=== PATIENT | male | born 1995 | race Caucasian/White ===

== ENCOUNTER 2019-08-09 21:14 | Day surgery (SDC) | payer OTHER ==
[2019-08-09] MEDS ORDERED: Sodium Chloride 0.9% 10 ML Syringe FLUSH PRN (21:18)
[2019-08-09] MEDS ORDERED: Sodium Chloride 0.9% 2.5 ML Syringe FLUSH PRN (21:18)
[2019-08-09 22:12] LABS: BLOOD UREA NITROGEN,BUN 15 mg/dL (7.0-18.0); CARBON DIOXIDE,CO2 29.1 mmol/L (21.0-32.0); CHLORIDE,CL 101 mmol/L (98-107); GLUCOSE RANDOM 130 mg/dL (74-106); POTASSIUM,K 4.2 mmol/L (3.5-5.1); SODIUM,NA 139 mmol/L (136-148)
--- NOTE | 2019-08-10 00:01 | EDM.PDOC ---
ED HPI GENERAL MEDICAL PROBLEM - General Chief Complaint: Abdominal Pain Stated Complaint: ABDOMINAL PAIN Time Seen by Provider: 08/09/19 23:30 Source of Information: Reports: Patient - History of Present Illness INITIAL COMMENTS - FREE TEXT/NARRATIVE: The patient is a healthy 23-year-old male who presents to the ER for right lower quadrant abdominal pain. He states that this started last night and has been persistent and slowly getting worse. He states that the pain is always there and the only thing that seems to make it better or worse is movement makes it worse and it seems to be a little better if he sits still but the pain is still there. No fevers or chills, no nausea or vomiting, no testicular pain , no dysuria urinary frequency, no other acute complaints. RLQ Pain Score (Numeric/FACES): 7 - Related Data Allergies Allergy/AdvReac Type Severity Reaction Status Date / Time Cephalosporins Allergy Hives Verified 08/09/19 21:25 Penicillins Allergy Hives Verified 08/09/19 21:25 Sulfa (Sulfonamide Allergy Hives Verified 08/09/19 21:25 Antibiotics) Home Meds: Home Meds Methylphenidate HCl [Concerta] 36 mg PO DAILY 08/09/19 [History] Sertraline [Zoloft] 200 mg PO DAILY 08/09/19 [History] buPROPion [Wellbutrin] 75 mg PO DAILY 08/09/19 [History] Past Medical History HEENT History: Reports: None Cardiovascular History: Reports: None Respiratory History: Reports: None Gastrointestinal History: Reports: None Genitourinary History: Reports: None Musculoskeletal History: Reports: None Psychiatric History: Reports: ADHD, Anxiety, Depression Endocrine/Metabolic History: Reports: None Hematologic History: Reports: None Immunologic History: Reports: None Oncologic (Cancer) History: Reports: None Dermatologic History: Reports: None - Infectious Disease History Infectious Disease History: Reports: Chicken Pox - Past Surgical History Male Surgical History: Reports: None Social & Family History - Family History Family Medical History: Noncontributory - Tobacco Use Smoking Status *Q: Never Smoker - Recreational Drug Use Recreational Drug Use: No ED ROS GENERAL - Review of Systems Review Of Systems: See Below (Positive for abdominal pain, negative for fevers, negative for chills, negative for dysuria, negative for nausea or vomiting or diarrhea, all other Positives and pertinent negatives as per HPI. All other pertinent systems were reviewed and are negative) ED EXAM, GI/ABD - Physical Exam Exam: See Below Text/Narrative:: Constitutional: No acute distress, Non-toxic appearance HEENT.: Normocephalic, Atraumatic, PERRL, EOMI, External ears are atraumatic, nares are patent without epistaxis Neck: Normal range of motion, Trachea Midline, No stridor Respiratory.: No respiratory distress, No tachypnea, Lungs Clear to Auscultation bilaterally without wheezes, rales, or rhonchi Cardiovascular.: Regular rate and Rhythm without murmurs, rubs, or gallops, good peripheral perfusion GI: Abdomen is morbidly obese, not distended, there is very reproducible right lower quadrant and suprapubic tenderness, there appears to be some guarding and rebound Genital Urinary: Deferred Musculoskeletal: Good range of motion. All 4 extremities present and atraumatic , no edema Back: Full Range of Motion Skin: Warm, Dry, Color is ethnicity appropriate, No acute rash. Lymphatic: No lymphadenopathy noted Neurological: Alert, Awake and oriented x 3, No focal deficits noted appreciate , GCS 15 Psych: Affect, Judgement, mood normal Course - Vital Signs Text/Narrative:: Differential diagnosis is extensive but is most concerning for an appendicitis. Lab work was initiated and a CT scan of the abdomen and pelvis with IV contrast was initiated and the patient has a positive dilated appendix with localized periappendiceal inflammatory changes consistent with appendicitis. No other concerning findings were found on the CT scan. The patient will be started on clindamycin 300 mg IV and he will be admitted for surgery for further treatment and final disposition as appropriate. Last Recorded V/S: Last Vital Signs Temp 36.1 C 08/09/19 21:28 Pulse 109 H 08/09/19 23:32 Resp 18 08/09/19 21:28 BP 126/76 08/10/19 00:08 Pulse Ox 96 08/09/19 23:32 - Orders/Labs/Meds Orders: Active Orders 24 hr Category Date Time Status Clindamycin Phosphate [Cleocin] 300 mg Med 08/10/19 00:59 Ordered Sodium Chloride 0.9% [Normal Saline] 50 ml IV ONETIME Sodium Chloride 0.9% [Saline Flush] Med 08/09/19 21:18 Active 10 ml FLUSH ASDIRECTED PRN Sodium Chloride 0.9% [Saline Flush] Med 08/09/19 21:18 Active 2.5 ml FLUSH ASDIRECTED PRN Saline Lock Insert [OM.PC] Stat Oth 08/09/19 21:18 Ordered Medication Orders Sodium Chloride (Saline Flush) 10 ml FLUSH ASDIRECTED PRN PRN Reason: Keep Vein Open Sodium Chloride (Saline Flush) 2.5 ml FLUSH ASDIRECTED PRN PRN Reason: Keep Vein Open Labs: Laboratory Tests 08/09/19 08/09/19 08/09/19 Range/Units 21:29 21:38 21:38 WBC 11.78 H (4.0-11.0) K/uL RBC 5.69 (4.50-5.90) M/uL Hgb 16.5 (13.0-17.0) g/dL Hct 48.7 (38.0-50.0) % MCV 85.6 (80.0-98.0) fL MCH 29.0 (27.0-32.0) pg MCHC 33.9 (31.0-37.0) g/dL RDW Std Deviation 41.9 (28.0-62.0) fl RDW Coeff of Zev 14 (11.0-15.0) % Plt Count 350 (150-400) K/uL MPV 9.10 (7.40-12.00) fL Neut % (Auto) 68.4 (48.0-80.0) % Lymph % (Auto) 20.6 (16.0-40.0) % [place] % (Auto) 9.3 (0.0-15.0) % Eos % (Auto) 1.4 (0.0-7.0) % Baso % (Auto) 0.3 (0.0-1.5) % Neut # (Auto) 8.1 H (1.4-5.7) K/uL Lymph # (Auto) 2.4 (0.6-2.4) K/uL [place] # (Auto) 1.1 H (0.0-0.8) K/uL Eos # (Auto) 0.2 (0.0-0.7) K/uL Baso # (Auto) 0.0 (0.0-0.1) K/uL Nucleated RBC % 0.0 /100WBC Nucleated RBCs # 0 K/uL Sodium 139 (136-148) mmol/L Potassium 4.2 (3.5-5.1) mmol/L Chloride 101 (98-107) mmol/L Carbon Dioxide 29.1 (21.0-32.0) mmol/L BUN 15 (7.0-18.0) mg/dL Creatinine 1.0 (0.8-1.3) mg/dL Est Cr Clr Drug Dosing 129.84 mL/min Estimated GFR (MDRD) > 60.0 ml/min Glucose 130 H (74-106) mg/dL Calcium 9.0 (8.5-10.1) mg/dL Total Bilirubin 0.6 (0.2-1.0) mg/dL AST 22 (15-37) IU/L ALT 43 (14-63) IU/L Alkaline Phosphatase 116 (46-116) U/L Total Protein 8.0 (6.4-8.2) g/dL Albumin 3.4 (3.4-5.0) g/dL Globulin 4.6 H (2.6-4.0) g/dL Albumin/Globulin Ratio 0.7 L (0.9-1.6) Urine Color YELLOW Urine Appearance CLEAR Urine pH 6.0 (5.0-8.0) Ur Specific [place] 1.025 (1.001-1.035) Urine Protein NEGATIVE (NEGATIVE) mg/dL Urine Glucose (UA) NEGATIVE (NEGATIVE) mg/dL Urine Ketones NEGATIVE (NEGATIVE) mg/dL Urine Occult Blood NEGATIVE (NEGATIVE) Urine Nitrite NEGATIVE (NEGATIVE) Urine Bilirubin NEGATIVE (NEGATIVE) Urine Urobilinogen 0.2 (<2.0) EU/dL Ur Leukocyte Esterase NEGATIVE (NEGATIVE) Meds: Medications Generic Name Dose Route Start Last Admin Trade Name Freq PRN Reason Stop Dose Admin Sodium Chloride 10 ml 08/09/19 21:18 Saline Flush FLUSH ASDIRECTED PRN Keep Vein Open Sodium Chloride 2.5 ml 08/09/19 21:18 Saline Flush FLUSH ASDIRECTED PRN Keep Vein Open Discontinued Medications Generic Name Dose Route Start Last Admin Trade Name Freq PRN Reason Stop Dose Admin Iopamidol 100 ml 08/10/19 00:03 08/10/19 00:14 Isovue-370 (76%) IVPUSH 08/10/19 00:04 100 ml ONETIME STA Administration Departure - Departure Time of Disposition: 01:01 Disposition: Admitted As Inpatient 66 Condition: Good Clinical Impression: Appendicitis - Discharge Information Referrals: PCP,Not In Area [Primary Care Provider] - Forms: ED Department Discharge Sepsis Event Note - Evaluation Sepsis Screening Result: No Definite Risk - Focused Exam Vital Signs: Vital Signs Temp Pulse Resp BP Pulse Ox 08/10/19 00:08 126/76 08/09/19 23:32 109 H 96 08/09/19 21:28 36.1 C 100 18 133/73 96 Date Exam was Performed: 08/10/19 Time Exam was Performed: 01:00 - My Orders Last 24 Hours: My Active Orders 08/10/19 00:59 Clindamycin Phosphate [Cleocin] 300 mg Sodium Chloride 0.9% [Normal Saline] 50 ml IV ONETIME - Assessment/Plan Last 24 Hours: My Active Orders 08/10/19 00:59 Clindamycin Phosphate [Cleocin] 300 mg Sodium Chloride 0.9% [Normal Saline] 50 ml IV ONETIME
[2019-08-10] MEDS ORDERED: Iopamidol 755 Mg/ML 100 ML Bottle IVPUSH STA (00:03)
--- NOTE | 2019-08-10 00:48 | CT ---
INDICATION: Right-sided abdominal pain TECHNIQUE: Axial images were obtained from the diaphragm to the pubic symphysis. Reformats were obtained in the coronal and sagittal plane. IV Contrast: 100 cc Isovue 370 Oral Contrast: None COMPARISON: None. FINDINGS: Lower chest: Basilar discoid atelectasis. Liver: Unremarkable. Normal in size and attenuation. No masses. Gallbladder and bile ducts: Contracted gallbladder without gross abnormality. Spleen: Unremarkable. Normal in size without mass. Pancreas: Unremarkable. No mass or inflammation. Adrenal glands: Unremarkable. No nodules. Kidneys: Unremarkable. No masses, stones, or hydronephrosis. Vasculature: Unremarkable. GI tract: Stomach is unremarkable. There are no dilated loops of large or small intestine. Dilation of the appendix measuring up to 10 millimeters with periappendiceal fat stranding. Small fecalith noted. No evidence of abscess. Presumed reactive right lower quadrant mesenteric lymph nodes. Pelvis: Unremarkable. Bones: Unremarkable for age. IMPRESSION: Dilated appendix with periappendiceal inflammation consistent with acute appendicitis. No evidence of abscess. Please note that all CT scans at this facility use dose modulation, iterative reconstruction, and/or weight-based dosing when appropriate to reduce radiation dose to as low as reasonably achievable. Dictated by Zechariah Meehan MD @ Aug 10 2019 12:43AM Signed by Dr. Zechariah Meehan @ Aug 10 2019 12:47AM
[2019-08-10] MEDS ORDERED: Clindamycin Phosphate in D5W 600 MG in Premix Bag 1 BAG IV ONE ×2 (01:34)
--- NOTE | 2019-08-10 01:41 | PCM.PREANE ---
Preanesthetic Assessment - Anesthesia/Transfusion/Family Hx Anesthesia History: Prior Anesthesia Without Reaction Family History of Anesthesia Reaction: No Transfusion History: No Prior Transfusion(s) Intubation History: Intubation other than for Surgery in past - Review of Systems General: No Symptoms Pulmonary: No Symptoms Cardiovascular: No Symptoms Gastrointestinal: Other (Pain) Neurological: No Symptoms Other: Reports: None - Physical Assessment NPO Status Date: 08/09/19 NPO Status Time: 18:30 Vital Signs: Last Vital Signs Temp 36.2 C 08/10/19 01:02 Pulse 89 08/10/19 01:02 Resp 18 08/10/19 01:02 BP 136/85 08/10/19 01:02 Pulse Ox 96 08/10/19 01:02 Height: 1.85 m Weight: 145.15 kg ASA Class: 2E Mental Status: Alert & Oriented x3 Airway Class: Mallampati = 1 Dentition: Reports: Normal Dentition Thyro-Mental Finger Breadths: 3 Mouth Opening Finger Breadths: 3 ROM/Head Extension: Full Lungs: Clear to Auscultation Cardiovascular: Regular Rate - Lab Values: Laboratory Last Values WBC 11.78 K/uL (4.0-11.0) H 08/09/19 21:38 RBC 5.69 M/uL (4.50-5.90) 08/09/19 21:38 Hgb 16.5 g/dL (13.0-17.0) 08/09/19 21:38 Hct 48.7 % (38.0-50.0) 08/09/19 21:38 MCV 85.6 fL (80.0-98.0) 08/09/19 21:38 MCH 29.0 pg (27.0-32.0) 08/09/19 21:38 MCHC 33.9 g/dL (31.0-37.0) 08/09/19 21:38 RDW Std Deviation 41.9 fl (28.0-62.0) 08/09/19 21:38 RDW Coeff of Zev 14 % (11.0-15.0) 08/09/19 21:38 Plt Count 350 K/uL (150-400) 08/09/19 21:38 MPV 9.10 fL (7.40-12.00) 08/09/19 21:38 Neut % (Auto) 68.4 % (48.0-80.0) 08/09/19 21:38 Lymph % (Auto) 20.6 % (16.0-40.0) 08/09/19 21:38 [place] % (Auto) 9.3 % (0.0-15.0) 08/09/19 21:38 Eos % (Auto) 1.4 % (0.0-7.0) 08/09/19 21:38 Baso % (Auto) 0.3 % (0.0-1.5) 08/09/19 21:38 Neut # (Auto) 8.1 K/uL (1.4-5.7) H 08/09/19 21:38 Lymph # (Auto) 2.4 K/uL (0.6-2.4) 08/09/19 21:38 [place] # (Auto) 1.1 K/uL (0.0-0.8) H 08/09/19 21:38 Eos # (Auto) 0.2 K/uL (0.0-0.7) 08/09/19 21:38 Baso # (Auto) 0.0 K/uL (0.0-0.1) 08/09/19 21:38 Nucleated RBC % 0.0 /100WBC 08/09/19 21:38 Nucleated RBCs # 0 K/uL 08/09/19 21:38 Sodium 139 mmol/L (136-148) 08/09/19 21:38 Potassium 4.2 mmol/L (3.5-5.1) 08/09/19 21:38 Chloride 101 mmol/L (98-107) 08/09/19 21:38 Carbon Dioxide 29.1 mmol/L (21.0-32.0) 08/09/19 21:38 BUN 15 mg/dL (7.0-18.0) 08/09/19 21:38 Creatinine 1.0 mg/dL (0.8-1.3) 08/09/19 21:38 Est Cr Clr Drug Dosing 129.84 mL/min 08/09/19 21:38 Estimated GFR (MDRD) > 60.0 ml/min 08/09/19 21:38 Glucose 130 mg/dL (74-106) H 08/09/19 21:38 Calcium 9.0 mg/dL (8.5-10.1) 08/09/19 21:38 Total Bilirubin 0.6 mg/dL (0.2-1.0) 08/09/19 21:38 AST 22 IU/L (15-37) 08/09/19 21:38 ALT 43 IU/L (14-63) 08/09/19 21:38 Alkaline Phosphatase 116 U/L (46-116) 08/09/19 21:38 Total Protein 8.0 g/dL (6.4-8.2) 08/09/19 21:38 Albumin 3.4 g/dL (3.4-5.0) 08/09/19 21:38 Globulin 4.6 g/dL (2.6-4.0) H 08/09/19 21:38 Albumin/Globulin Ratio 0.7 (0.9-1.6) L 08/09/19 21:38 Urine Color YELLOW 08/09/19 21:29 Urine Appearance CLEAR 08/09/19 21:29 Urine pH 6.0 (5.0-8.0) 08/09/19 21:29 Ur Specific [place] 1.025 (1.001-1.035) 08/09/19 21:29 Urine Protein NEGATIVE mg/dL (NEGATIVE) 08/09/19 21:29 Urine Glucose (UA) NEGATIVE mg/dL (NEGATIVE) 08/09/19 21:29 Urine Ketones NEGATIVE mg/dL (NEGATIVE) 08/09/19 21:29 Urine Occult Blood NEGATIVE (NEGATIVE) 08/09/19 21:29 Urine Nitrite NEGATIVE (NEGATIVE) 08/09/19 21:29 Urine Bilirubin NEGATIVE (NEGATIVE) 08/09/19 21:29 Urine Urobilinogen 0.2 EU/dL (<2.0) 08/09/19 21:29 Ur Leukocyte Esterase NEGATIVE (NEGATIVE) 08/09/19 21:29 - Allergies Allergies/Adverse Reactions: Allergies Allergy/AdvReac Type Severity Reaction Status Date / Time Cephalosporins Allergy Hives Verified 08/09/19 21:25 Penicillins Allergy Hives Verified 08/09/19 21:25 Sulfa (Sulfonamide Allergy Hives Verified 08/09/19 21:25 Antibiotics) - Blood Blood Available: No Product(s) Available: None - Anesthesia Plan Free Text/Narrative:: GAET Pre-Op Medication Ordered: None - Acknowledgements Anesthesia Type Planned: General Anesthesia Pt an Appropriate Candidate for the Planned Anesthesia: Yes Alternatives and Risks of Anesthesia Discussed w Pt/Guardian: Yes Pt/Guardian Understands and Agrees with Anesthesia Plan: Yes Additional Comments: Discussed. ? answered. Permit signed. PreAnesthesia Questionnaire HEENT History: Reports: None Cardiovascular History: Reports: None Respiratory History: Reports: None Gastrointestinal History: Reports: None Genitourinary History: Reports: None Musculoskeletal History: Reports: None Psychiatric History: Reports: ADHD, Anxiety, Depression Endocrine/Metabolic History: Reports: None Hematologic History: Reports: None Immunologic History: Reports: None Oncologic (Cancer) History: Reports: None Dermatologic History: Reports: None - Infectious Disease History Infectious Disease History: Reports: Chicken Pox - Past Surgical History Male Surgical History: Reports: None - SUBSTANCE USE Smoking Status *Q: Never Smoker Recreational Drug Use History: No - HOME MEDS Home Medications: Home Meds Methylphenidate HCl [Concerta] 36 mg PO DAILY 08/09/19 [History] Sertraline [Zoloft] 200 mg PO DAILY 08/09/19 [History] buPROPion [Wellbutrin] 75 mg PO DAILY 08/09/19 [History] - CURRENT (IN HOUSE) MEDS Current Meds: Current Medications Clindamycin Phosphate 600 mg/ (Premix) 50 mls @ 100 mls/hr IV ONETIME ONE Stop: 08/10/19 02:03 Lactated Ringer's (Ringers, Lactated) 1,000 mls @ 150 mls/hr IV ASDIRECTED LUIS Sodium Chloride (Saline Flush) 10 ml FLUSH ASDIRECTED PRN PRN Reason: Keep Vein Open Sodium Chloride (Saline Flush) 2.5 ml FLUSH ASDIRECTED PRN PRN Reason: Keep Vein Open Discontinued Medications Clindamycin Phosphate 300 mg/ (Sodium Chloride) 52 mls @ 100 mls/hr IV ONETIME ONE Stop: 08/10/19 01:30 Iopamidol (Isovue-370 (76%)) 100 ml IVPUSH ONETIME STA Stop: 08/10/19 00:04 Last Admin: 08/10/19 00:14 Dose: 100 ml
[2019-08-10] MEDS ORDERED: Lactated Ringers 1,000 ML IV SCH ×2 (01:45→05:15)
[2019-08-10] MEDS ORDERED: Levofloxacin/Dextrose 5%-Water 750 MG in Premix Bag 1 BAG IV ONE (01:47)
[2019-08-10] MEDS ORDERED: fentaNYL 100 MCG/2 ML SDV ONE ×2 (01:51→03:56)
[2019-08-10] MEDS ORDERED: Midazolam 1 MG/ML 2 ML SDV ONE (01:51)
[2019-08-10] MEDS ORDERED: Ondansetron 4 MG/2 ML SDV ONE (01:51)
[2019-08-10] MEDS ORDERED: Propofol 200 MG/20 ML SDV ONE (01:51)
[2019-08-10] MEDS ORDERED: Glycopyrrolate 0.2 MG/ML SDV ONE (01:52)
[2019-08-10] MEDS ORDERED: Morphine 10 MG/ML Syringe ONE (01:52)
[2019-08-10] MEDS ORDERED: Rocuronium 100 MG/10 ML Syringe ONE (01:52)
[2019-08-10] MEDS ORDERED: Ketorolac 30 MG/ML SDV ONE (01:52)
[2019-08-10] MEDS ORDERED: Sugammadex Sodium 200 MG/2 ML VIAL ONE (01:53)
--- NOTE | 2019-08-10 01:57 | PCM.SN ---
- Free Text/Narrative Note: pt seen, chart reviewed; acute appendicitis w abd pain X 24 hrs, proceed w appendectomy, lap vs open, rb dw pt re bleeding/infection/damage to nearby organs; pt concur and proceed; iv abx levaquine; LR at 150; [id number]
[2019-08-10] MEDS ORDERED: Bupivacaine 0.25%/EPINEPHrine 1:200,000 10 ML SDV ONE ×2 (02:09)
[2019-08-10] MEDS ORDERED: Morphine 4 MG/ML Syringe IVPUSH ONE (03:17)
[2019-08-10] MEDS ORDERED: Lidocaine 2% 5 ML SDV ONE (04:53)
--- NOTE | 2019-08-10 04:59 | PCM.OPNOTE ---
- General Post-Op/Procedure Note Date of Surgery/Procedure: 08/10/19 Operative Procedure(s): lap appendectomy Findings: appendicitis suppurativa, gross perf not observed; surgicell and flat jud drain placed. [id number] Pre Op Diagnosis: acute appendicitis Post-Op Diagnosis: Same Anesthesia Technique: General ET Tube Primary Surgeon: Raul Collazo Pathology: sent Complications: None Condition: Stable
[2019-08-10] MEDS ORDERED: Acetaminophen/oxyCODONE 325-5 MG Tab PO PRN (05:03)
[2019-08-10] MEDS ORDERED: Ondansetron 4 MG/2 ML SDV IVPUSH PRN (05:04)
[2019-08-10] MEDS ORDERED: Morphine 4 MG/ML Syringe IVPUSH PRN (05:10)
[2019-08-10] MEDS ORDERED: Promethazine 25 MG/ML SDV ONE (05:54)
[2019-08-10] MEDS ORDERED: Promethazine 25 MG/ML SDV IM ONE (05:55)
--- NOTE | 2019-08-10 06:24 | PCM.POSTAN ---
POST ANESTHESIA ASSESSMENT - MENTAL STATUS Mental Status: Alert Free Text/Narrative:: Somewhat sleepy from phenergan. - VITAL SIGNS Vital Signs: Last Vital Signs Temp 36.7 C 08/10/19 05:05 Pulse 75 08/10/19 06:21 Resp 15 08/10/19 06:21 BP 122/55 L 08/10/19 06:21 Pulse Ox 93 L 08/10/19 06:21 - RESPIRATORY Respiratory Status: Respiratory Rate WNL - CARDIOVASCULAR CV Status: Pulse Rate WNL - GASTROINTESTINAL GI Status: [place] Free Text/Narrative:: Improving. - PAIN Pain Score: 4 (Sore.) - POST OP HYDRATION Hydration Status: Adequate & Stable - OBSERVATIONS Free Text/Narrative:: Doing well, moving to floor.
--- NOTE | 2019-08-10 08:06 | HP ---
DATE OF : 1995 PRIMARY CARE PHYSICIAN: None PCP This is also a consult from the emergency room provider, Dr. Daley. CONCERNING QUESTION: Acute appendicitis. HISTORY OF PRESENT ILLNESS: The patient is a 23-year-old obese gentleman, BMI of 42, seen in emergency room for 24-hour history of acute onset of right lower quadrant pain. Pain subsequently got worse and sought help in emergency room. CAT scan showed acute appendicitis. Surgery was then consulted. The patient denied nausea and vomiting. Denied fever, chills, or diarrhea. Denied prior episode. Pain is 7 on pain scale. ALLERGIES: Please refer to nursing note for detail. Cephalosporin, PCN, sulfa, and response is rash. MEDICATIONS: Please refer to nursing notes for details. FAMILY HISTORY: Noncontributory. PAST MEDICAL HISTORY: Denied diabetic, VT, CVA, hypertension. PAST SURGICAL HISTORY: No abdominal surgery. FAMILY HISTORY: No family history of malignant hypothermia. SOCIAL HISTORY: Denied tobacco or alcohol abuse. PHYSICAL EXAMINATION: GENERAL: A very pleasant gentleman, able to go from lying down to sitting up with absolutely no complaint. HEENT: Normocephalic, atraumatic. Sclerae anicteric. LUNGS: Clear to auscultation. HEART: Regular rate and rhythm. ABDOMEN: Soft, nondistended. No pulsating, tender, midline abdominal structure. Exquisite tenderness in right lower quadrant at McBurney's point. No Rovsing sign. No rebound tenderness. LABORATORY DATA: White count is 11. DIAGNOSTIC DATA: CAT scan: Dilated appendix with periappendiceal inflammatory response. IMPRESSION: Acute appendicitis. Would benefit from timely surgical intervention. Risks and benefits discussed with the patient, including bleeding, infection, and damage to nearby organs. On postoperative course, the patient concurred to proceed as planned. The patient is allergic to PCN. We will give him Levaquin 750 mg IV. The patient concurred to proceed with surgery. As always, thank you for kind referral. ISABELLA / ARELY /[id number]
--- NOTE | 2019-08-10 09:00 | OR ---
SURGEON: Raul Collazo MD DATE OF PROCEDURE: 08/10/2019 PREOPERATIVE DIAGNOSIS: Acute appendicitis. POSTOPERATIVE DIAGNOSIS: Acute appendicitis. PROCEDURE PERFORMED: Laparoscopic appendectomy. PRIMARY SURGEON: Raul Collazo M.D. COMPLICATIONS: None. FINDINGS: The appendix is totally rotten with a large amount of exudate consistent with appendicitis suppurativa. Gross perforation is not observed. Peritoneal fluid is a little bit purulent though, and also with severe adherence to surrounding suggests chronicity. Again, gross perforation is not observed. A piece of Surgicel was inserted to aid in hemostasis and a flat 10 BARRY drain was also inserted. DESCRIPTION OF PROCEDURE: The patient was taken to the operating room and placed in the supine position. Following induction of general endotracheal anesthesia, the patient's abdomen was prepped and draped in the sterile fashion. A time-out has been called. The patient was identified. The procedure was identified. The antibiotics were identified. The procedure then proceeded. The abdomen was prepped and draped in a standard fashion. After assessment of appropriate landmarks, a 12 millimeter trocar was inserted supraumbilically using Optiview and pneumoperitoneum was then achieved. This was followed with placement of 5 millimeter port in the right upper quadrant and another 5 millimeter port infraumbilically. The camera was inserted supraumbilical site and two laparoscopic [place] retractors were then inserted through the other two sites. Following the cecum, the appendix was located. The appendix was then lifted up, and using a GI stapler the appendix was amputated at the base. And using the GI stapler, the mesoappendix was then amputated. The appendix was retrieved by an endoscopic bag and sent for pathologist. Upon removal of the appendix, a piece of Surgicel was inserted for hemostasis, and prior to doing that, free surgical clip was also inserted on a staple line to aid in the hemostasis. Afterward, a piece of flat 10 BARRY drain was inserted through the lower port site, anchored to the skin using 0 silk stitch and followed by appropriate dressing. This was then followed by re-insertion of the camera to examine the staple line, and hemostasis. The trocars were then removed. The umbilical site was closed with 2-0 Vicryl deep stitch and 4 -0 Vicryl and Dermabond; the other 2 5 mm port sites were closed with 4-0 Vicryl and Dermabond. The patient was then awakened, extubated, and transferred to the recovery room in hemodynamically stable condition. Prior to closing the port site, instrument counts and sponge counts were correct. The patient tolerated the procedure well. There were no intraoperative complications. Dr. Collazo was present throughout the whole procedure. As always, thank you for the kind referral. ISABELLA / ARELY /[id number]
--- NOTE | 2019-08-10 11:06 | PCM48HPAN ---
Post Anesthesia Note - EVALUATION WITHIN 48HRS OF ANESTHETIC Vital Signs in Normal Range: Yes Patient Participated in Evaluation: Yes Respiratory Function Stable: Yes Airway Patent: Yes Cardiovascular Function Stable: Yes Hydration Status Stable: Yes Pain Control Satisfactory: Yes Nausea and Vomiting Control Satisfactory: Yes Mental Status Recovered: Yes Vital Signs: Last Vital Signs Temp 36.4 C 08/10/19 08:00 Pulse 87 08/10/19 08:00 Resp 20 08/10/19 08:00 BP 104/61 08/10/19 08:00 Pulse Ox 95 08/10/19 08:00 - COMMENTS/OBSERVATIONS Free Text/Narrative:: No anesthesia problems.
== END 2019-08-10 16:00 | disposition home or self-care (01) ==
LOC: MW.ED 21:14 → MW.SDS 08-10 01:50 → MW.MS 08-10 01:50 → UNDOADMIN 08-10 01:51 → MW.SDS 08-10 01:51 → MW.MS 08-10 01:51 → MW.SDS 08-10 16:00
PROVIDERS: ATTEND Surgery
DX: K35.80 Unspecified acute appendicitis (principal); F41.9 Anxiety disorder, unspecified; F32.9 Major depressive disorder, single episode, unspecified; E66.9 Obesity, unspecified; Z68.41 Body mass index [BMI] 40.0-44.9, adult; Z88.1 Allergy status to other antibiotic agents; Z88.2 Allergy status to sulfonamides; Z88.0 Allergy status to penicillin; Z79.899 Other long term (current) drug therapy
CPT/HCPCS: 44970; 74177; 80053; 81003; 85025; 99285; A9270; C1776; J0131; J1956; J2001; J2250; J2270; J2405; J2550; J2704; J3010; J3490; J7120; Q9967; S0077; 88304; 99284; J1885